=== PATIENT | male | born 2000 | race Caucasian/White ===

== ENCOUNTER 2018-04-10 10:00 | Outpatient (RCR) | payer SELFPAY ==
--- NOTE | 2018-03-27 10:03 | IE_ITS ---
Date: 03/27/18 Referring: Mili Canales APRN [facility] [address] [place] Erin Diagnosis: Pain of (R) scapula P.T. Diagnosis: Cervicogenic (R) scapula paraesthesia, nerve root entrapment C6 -7 (R). SUBJECTIVE: History of Present Illness: Farooq reporting that in mid February he woke up one morning feeling as if he had a rash on the (R) scapular area. Visual examination there was no presentation of a rash but he did state that he was very swollen along the (R) side of his thoracic spine and along the (R) shoulder blade. He has episodic symptoms of feeling cold, rash feeling, pins and needles or numbness. He has not noticed a particular movement or activity that exacerbates these symptoms. He is (R) hand dominant and he also explains intermittent chest pain that happens about 2x per day and feels like a tight muscle sensation. Denies shortness of breath or palpitations. Chest pain has been present since May 2018 after he pushed a 55 gallon drum and had a pec strain. At that point his pain was severe and daily. Since it has subsided so he believes that this is residual discomfort from this as symptoms are exactly the same, it never essentially resolved. He reports some occasional neck stiffness about 2-3 times per week but without any real pain. If he is lying on his back with arm abducted to his side he will have numbness in the arm but as soon as he changes his position numbness resolves. He observes no strength deficits or motor control of the UE and he denies double vision, dizziness, drop attacks, or difficulty swallowing. He denies any fevers or any other joint swelling or discomfort. He has not had any diagnostics at this point. Pain Rating: Pt does not describe his symptoms as pain as much as paraesthesias and he has a very hard time rating this on the VAS. Pain Location: (R) thoracic paraspinals, (R) parascapular region with some referral into the (L) thoracic paraspinals with exacerbation. Mild (R) upper trap discomfort with stiffness in the neck. Intermittent paraesthesias numbness (R) UE but less frequent. Prior Level of Function: WNL Current Level of Function: Essentially WNL but has above symptoms occurring with general object manipulation and activity. 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 He continues to carry out all of his work duties currently. Comorbidities: Denies. Falls in the last year: __X__ No ____Yes - How many? ____ - (if over 2, balance SM needs to be completed) Reported hospitalizations in the last year - __X__ No ____ Yes - Dates of admission/reason: Medications: Denies Quality of Life: __X__ Good Standardized Measures: None completed. OBJECTIVE: Posture: Has mild shoulder hiking (B), and just very mild shoulder protrusion ( B) and symmetrical but nothing remarkable. His mild suggestion of a (R) thoracic convexity but very mild and also not of mentioned. Mild forward head but more due to poor posture utilization verus fixed deformity. Observation: (behavior, atrophy, skin color, etc.) Normal and symmetrical muscle appearance intention through (B) cervical thoracic regions. Symmetrical and stable scap thoracic mobility with dynamic glenohumeral movements. Communicates well and he appears comfortable. Gait: WNL Palpation: Mild trigger point (R) upper trap, feeling of some numbness and paraesthesias with palpation through the (R) parascapular region particularly the (R) infraspinatus fossa. But no tension appreciated throughout this region. Edema: None ROM: (L) UE WNL C-spine flexion WNL Extension is WNL but positive paraesthesias provocation. (L) rotation 70* (R) rotation 60* (B) side bend is about 45* all without symptom provocation (R) UE is full inactively without pain provocation with the exception of end range abduction producing mild paraesthesias otherwise UE are WNL (B) Joint Accessory Motion: C-spine articular side gliding and PAs are all WNL but with mild symptom provocation of (R) paraesthesias with (L) lateral side glide of c6 and C7 and with faucet up gliding of C6 and C7 and with (R) UPAs of C5- C7. With upper thoracic PAs she has mild paraesthesia provocation likely related to the extension overpressure through the c-spine. But otherwise thoracic mobs are essentially WNL with come cavitations even occurring at T5- T9. Strength: Grossly 5/5 throughout (B) UE and throughout the rotator cuff and parascapular musculature with good scap stability and good intrinsic stability. Neuro: WNL, UE screen (B). Median and ulnar nerve tension is WNL and symmetrical. Balance: WNL Special Tests: Positive Spurlings, negative (R) cervical quadrant, pain relief with cervical traction, negative ULTT (B), negative Seth Gabriel Impingement Testing. Movement dysfunction has very slight forward head with forward bending movements and lifting objects off the floor. He is observed to have poor posture with forward head protrusion of shoulders throughout but without deformities. Treatment: IE: [id number] Patient Education: Review HEP which is to include (R) upper trap and levator scap stretching but just gentle more for decompression of the (R) side of the spine. Review Biswas release pose and release of deep neck flexors with dynamic movements. KX applied to all codes ____ Yes __X__ No Manual therapy: (00665e2). Manual cervical traction (R) cervical up gliding and faucet up gliding. Articular side gliding throughout with focus of gapping with C5 through C7 neuro foramen. Ulnar nerve and median nerve ULTT flossing at the (R) x 10 each, IASTM down regulation throughout the (R) thoracic paraspinals , upper trap, infraspinatus fossa and (B) cervical paraspinals. OA flexion oscillation demonstrating excellent mobility, prolonged mid cervical flexion stretching with end range over pressure to 10* (B). Rock Taping application for inhibition of the (R) upper trap, facilitation of the lower trap for proper posture and for inhibition of the (R) cervical and thoracic paraspinals for desensitization efforts and paraesthesias. Direct treatment time: 60 minutes Total treatment time: 60 minutes ASSESSMENT: Patient is a 17-year-old male, referred for PT services with the diagnosis of (R ) scapular pain. Patient presents with clinical signs and symptoms consistent with cervicogenic (R) scapular paraesthesias, likely related to nerve root impingement. Pt is testing negative for any signs of disc pathology at this time. He has a job that involves a lot of lifting and overhead movements, likely allowing for mechanical impingement of his (R) cervical nerve root while performing theses activities, as he demonstrates poor posture utilization today with dynamic movement. , as demonstrated by the following impairment level findings: Soft tissue dysfunction throughout the (R) upper trap. Thoracic paraspinals and (R) infraspinatus, limited (R) cervical rotation, poor body awareness of deep neck flexors and appropriate posture with dynamic movements and mild articular limitations of the (R) C5-C7 region. Impairments are contributing to the following functional limitations: Discomfort with all object manipulation and job duties compared to premorbid level of function of pain free functioning. Patient is assessed as: __X__ Low 13474 ____ Moderate 91254 ____ High 31123 complexity, based on the following: History: See comorbidities and social history. Examination: See above for functional limitations and impairments. Presentation: X Evolving Decision-Making: X Moderate complexity __X__ Patient requires skilled PT intervention to remediate the above functional limitations to return to: __X__ Premorbid level of function Prognosis: __X__ Excellent STG: __4__ weeks. 1. PT reporting (R) scapular paraesthesias to be decreased by 50% 2. Can lay supine with (R) arm at his side without (R) UE numbness LTG: __7__ weeks. __X__ Return to premorbid level of function. PLAN: Patient to be seen 2 x per week, for 7 weeks, adjusting frequency of visits per patient symptoms and response to treatment. Treatment to include: X Manual therapy - [id number]: For cervical spine manual traction efforts with focus of decompression and nerve root decompression of the (R) side. Thoracic mobilizations for desensitizations and decompression efforts to the (R ) c-spine. Rock Taping application for desensitization in addition to down regulation IASTM as well as upregulation IASTM to lower traps and scapular stabilizers. X NRE- For deep neck flexor body awareness exercises and intrinsic utilization with dynamic movements. Thank you for this referral. Please do not hesitate to contact me with any questions or concerns regarding this patient's plan of care.
--- NOTE | 2018-04-01 11:18 | PTTR_ITS ---
DATE: 04/01/18 SUBJECTIVE: [place] rock tape assisted his shoulder to remain in proper position, and thus seemed to have less tingling. He did not appreciate any tingling in shoulder blade region until he was folding some laundry at home. His coworker are sitting with his lifting needs, to reduce strain to his neck. OBJECTIVE: KX applied to all codes N/A Manual therapy: ([id number]). IASTM down regulation R thoracic paraspinals, cervical paraspinals, and upper trap. Deep TPR to R upper trap and strumming of thoracic paraspinals R medial, radial, and ulnar nerve flossing x 10 each Manual cervical traction, and unilateral traction. Bilateral cervical massage facet upgliding, and R articular sidegliding for nerve root decompression. Therapeutic procedures ([id number]). Supine deep neck flexor isometrics, with remarkable verbal and manual cues for proper activation. Instructed to hold 10 sec, working up to 30 sec every half hour. Transitioned to prone and completed deep neck flexor activation with lower trap isometric 10 sec x 10. Both of these exercises added to HEP. Direct treatment time: 30 minutes Total treatment time: 30 minutes
--- NOTE | 2018-04-04 13:56 | PTTR_ITS ---
DATE: 04/04/18 SUBJECTIVE: Pt states he is feeling excellent at this point. He has noted a few times where he has had some paresthesias in the R shoulder blade, but this was when he was hunched over playing video games. As soon as he changed his posture, symptoms immediately reduced. Only has pain along the R shoulder blade region now when touching his skin. OBJECTIVE: Pt arrives 15 min late to his appt today, limiting treatment. Manual therapy: ([id number]). ROM: Full C-spine. Bilateral UE ROM without pain. Neuro: Negative R radial ulnar or median nerve flossing. Complete manual cervical traction, unilateral traction, R sided facet gapping via articular side gliding to the R. R upper trap and levator scap stretching. Prolonged midcervical spine stretching with decompression of the R side.R median and ulnar nerve flossing. IASTM down regulation through bilateral thoracic paraspinals and R upper trap, scapular framing and periscapular mobilization with instrument. Pt education: Encouraged to continue with current HEP and postural correction with functional movements. Direct treatment time: 20 min Total treatment time: 20 min ANUP/nicholas
--- NOTE | 2018-04-10 10:00 | PTTR_ITS ---
DATE: 04/10/18 SUBJECTIVE: Farooq stating that he continues to have minimal paresthesias through the R shoulder blade with exception of one area of numbness at the top of the shoulder blade and muscle tension along the R upper trap. He has only had 1 episode of tingling through the shoulder blade when he was lifting a heavy tire, otherwise has been able to maintain his symptoms well utilizing good posture. He appreciates now more general muscle tension through the upper trap vs the paresthesias. Manual therapy: ([id number]). Manual cervical traction, unilateral traction with focus of R side facet gapping on the R side with L rotation. Prolonged R upper trap, levator scap stretching, STM with IASTM down regulation through the R upper trap and R thoracic paraspinals. Instrument utilized for scap, thoracic mobilization. Deep trigger point release to the R upper trap. Rock taping applied to inhibit the R upper trap and R UE radial and medial nerve flossing x15 reps each. Patient encouraged to continue with deep neck flexor stabilization exercise and postural correction as I have previously issued. Direct treatment time: 25 mins Total treatment time: 25 mins JH/dl
--- NOTE | 2018-04-11 12:31 | NT_ITS ---
04/11/18 Patient canc due to transportation issues. LB/dl
== END 2018-04-19 23:59 | disposition home or self-care (01) ==
LOC: PT 10:00
PROVIDERS: PCP Family Medicine; Referring Provider Nurse Practitioner; Visit Provider Nurse Practitioner
DX: G54.2 Cervical root disorders, not elsewhere classified (principal)
CPT/HCPCS: 97110; 97140; 97161

== ENCOUNTER 2023-05-01 13:34 | Emergency (ER) | payer SELFPAY ==
[2023-05-01 13:42] VITALS: BP 139/93; PULSE 99; TEMP 37.2; O2SAT 97
--- OUTSIDE RECORDS SUMMARY | 2023-05-01 13:53 | XMS_ITS | Continuity of Care Document ---
Author Name Unknown Organization [facility] Address [address] [place] [address] Encounter LTTL_MI FIN NBR [id number] Date(s): 02/28/23 - 02/28/23 [facility] [address], [place] [address] Encounter Diagnosis Cervical radiculopathy(Discharge Diagnosis) - 02/28/23 Discharge Disposition: Home or Self Care Attending Physician: Lul Hurt MD Admitting Physician: Lul Hurt MD Allergies, Adverse Reactions, Alerts No Known Medication Allergies Functional Status 02/28/23 Other exposure to Infectious Disease Non e Medications No Known Medications Mental Status 02/28/23 Eye Opening Response [place] Spontaneous ly Best Verbal Response Wai Oriented Best Motor Response Wai Obeys comman ds [place] Coma Score 15 Vital Signs Most recent to oldest [Reference Range]: 1 Temperature Temporal Artery [36-38 Deg C ] 36.3 Deg C (02/28/23 9:21 AM) Peripheral Pulse Rate [60-100 bpm] 75 bp m (02/28/23 9:21 AM) Respiratory Rate [12-24 br/min] 17 br/mi n (02/28/23 9:21 AM) Blood Pressure [90-140/60-90 mmHg] 145/9 6mmHg *HI* (02/28/23 9:21 AM) Weight 79.38 kg (02/28/23 9:21 AM) Weight Dosing 79.38 kg (02/28/23 9:32 AM) Height 183.000 cm (02/28/23 9:21 AM) Height/Length Dosing 183.000 cm (02/28/23 9:32 AM) Body Mass Index 24.000 kg/m2 (02/28/23 9:21 AM) Social History Social History Type Response Tobacco Never tobacco user T obacco Use:. Sex Hospital Discharge Instructions Patient Education 02/28/2023 09:16:18 Cervical Radiculopathy Cervical Radiculopathy Cervical radiculopathy happens when a nerve in the neck (a cervical nerve) is pinched or bruised. This condition can happen because of an injury to the cervical spine (vertebrae) in the neck, or as part of the normal aging process. Pressure on the cervical nerves can cause pain or numbness that travels from the neck all the way down to the arm and fingers. This condition usually gets better with rest. Treatment may be needed if the condition does not improve. What are the causes? This condition may be caused by: ??? A neck injury. ??? A bulging (herniated) disk. ??? Muscle spasms. ??? Muscle tightness in the neck due to overuse. ??? Arthritis. ??? Breakdown or degeneration in the bones and joints of the spine (spondylosis) due to aging. ??? Bone spurs that may develop near the cervical nerves. What are the signs or symptoms? Symptoms of this condition include: ??? Pain. The pain may travel from the neck to the arm and hand. The pain can be severe or irritating. It may get worse when you move your neck. ??? Numbness or tingling in your arm or hand. ??? Weakness in the affected arm and hand, in severe cases. How is this diagnosed? This condition may be diagnosed based on your symptoms, your medical history, and a physical exam. You may also have tests, including: ??? X-rays. ??? CT scan. ??? MRI. ??? Electromyogram (EMG). ??? Nerve conduction tests. How is this treated? In many cases, treatment is not needed for this condition. With rest, the condition usually gets better over time. If treatment is needed, options may include: ??? Wearing a soft neck collar (cervical collar) for short periods of time. ??? Doing physical therapy to strengthen your neck muscles. ??? Taking medicines. These may include NSAIDs, such as ibuprofen, or oral corticosteroids. ??? Having spinal injections, in severe cases. ??? Having surgery. This may be needed if other treatments do not help. Different types of surgery may be done depending on the cause of this condition. Follow these instructions at home: If you have a cervical collar: ??? Wear it as told by your health care provider. Remove it only as told by your health care provider. ??? Ask your health care provider if you can remove the cervical collar for cleaning and bathing. If you are allowed to remove the collar for cleaning or bathing: ??? Follow instructions from your health care provider about how to remove the collar safely. ??? Clean the collar by wiping it with mild soap and water and drying it completely. ??? Take out any removable pads in the collar every 1???2 days, and wash them by hand with soap andwater. Let them air-dry completely before you put them back in the collar. ??? Check your skin under the collar for irritation or sores. If you see any, tell your health careprovider. Managing pain ??? Take ydsq-zqm-dqtrpuh and prescription medicines only as told by your health care provider. ??? If directed, put ice on the affected area. To do this: ??? If you have a soft neck collar, remove it as told by your health care provider. ??? Put ice in a plastic bag. ??? Place a towel between your skin and the bag. ??? Leave the ice on for 20 minutes, 2???3 times a day. ??? Remove the ice if your skin turns bright red. This is very important. If you cannot feel pain, heat, or cold, you have a greater risk of damage to the area. ??? If applying ice does not help, you can try using heat. Use the heat source that your health care provider recommends, such as a moist heat pack or a heating pad. ??? Place a towel between your skin and the heat source. ??? Leave the heat on for 20???30 minutes. ??? Remove the heat if your skin turns bright red. This is especially important if you are unable to feel pain, heat, or cold. You have a greater risk of getting burned. ??? Try a gentle neck and shoulder massage to help relieve symptoms. Activity ??? Rest as needed. ??? Return to your normal activities as told by your health care provider. Ask your health care provider what activities are safe for you. ??? Do stretching and strengthening exercises as told by your health care provider or your physicaltherapist. ??? You may have to avoid lifting. Ask your health care provider how much you can safely lift. General instructions ??? Use a flat pillow when you sleep. ??? Do not drive while wearing a cervical collar. If you do not have a cervical collar, ask your health care provider if it is safe to drive while your neck heals. ??? Ask your health care provider if the medicine prescribed to you requires you to avoid driving or using machinery. ??? Do not use any products that contain nicotine or tobacco. These products include cigarettes, chewing tobacco, and vaping devices, such as e-cigarettes. If you need help quitting, ask your health care provider. ??? Keep all follow-up visits. This is important. Contact a health care provider if: ??? Your condition does not improve with treatment. Get help right away if: ??? Your pain gets much worse and is not controlled with medicines. ??? You have weakness or numbness in your hand, arm, face, or leg. ??? You have a high fever. ??? You have a stiff, rigid neck. ??? You lose control of your bowels or your bladder (have incontinence). ??? You have trouble with walking, balance, or speaking. Summary ??? Cervical radiculopathy happens when a nerve in the neck is pinched or bruised. ??? A nerve can get pinched from a bulging disk, arthritis, muscle spasms, or an injury to the neck. ??? Symptoms include pain, tingling, or numbness radiating from the neck to the arm or hand. Weakness can also occur in severe cases. ??? Treatment may include rest, wearing a cervical collar, and physical therapy. Medicines may be prescribed to help with pain. In severe cases, injections or surgery may be needed. This information is not intended to replace advice given to you by your health care provider. Make sure you discuss any questions you have with your health care provider. Document Revised: 02/09/2022 Document Reviewed: 02/09/2022 [employer] Patient Education ?? 2022 [employer] Physician Emergency department Note * Licha HARMON, Lul Jamison: PERFORM Event Display: ED Note Physician Authored Date: [id number] MARLEEN PRATT :2000 Age:22 years Sex:Male Visit Date:02/28/2023 Basic Information Time Seen: Licha HARMON, Lul M / 02/28/2023 09:39 Chief Complaint Pt noticed LEFT shoulder numbness down to elbow and 4th and 5th digits last night. Lasted a few seconds and went away. Started again this AM after moving his arm at work. I think I might have pinched a nerve. 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 Denies any chest pain, shortness of breath fevers cough trouble breathing.?? No rashes, no tick bites no fevers. ??No IVDA, has hadsome mild??trapezial discomfort as well.?? Has a history of??sciatica in the right leg,??strain back??with upper right scapula??paresthesias and altered sensation in the past treated with PT??(no prior imaging).?? No cardiac risk factors,??occasional marijuana use. Review of Systems: Review of Systems: Constitutional: [No fevers, chills, sweats] Eye: [No acute visual complaints] ENT: [No ear pain, nasal congestion, sore throat] Respiratory: [No shortness of breath, cough] Cardiovascular: [No Chest pain or palpitations] Upper left chest??tingling Gastrointestinal: [No nausea, vomiting, or diarrhea. No blooding or melena] Genitourinary: [No dysuria or hematuria] Musculoskeletal: [Old left trapezial neck discomfort,??tingling??down outside of??left arm??down tohand Integumentary: [No rash, pruritus, abrasions] Neurologic: [Left armradiculopathy, otherwise??no focal sensory or motor complaints. Denies syncope] Psychiatric: [No anxiety, depression] ?? Physical Exam: General: [Alert and oriented, well nourished, no acute distress].?? Eye: [PERRL, EOMI, normal conjunctiva]. HENT: [Normocephalic, normal hearing, moist oral mucosa, no scleral icterus, no nasal discharge].?? Neck: [Ranging neck, normal inspection].?? Lungs: [Clear to auscultation, non-labored respiration, no tachypnea].?? Heart: [Normal rate, regular rhythm, no murmur, gallop or edema]. Abdomen: [Soft, non-tender, non-distended, normal bowel sounds].?? Musculoskeletal: [Normal range of motion and strength, no tenderness or swelling]. Skin: [Skin is warm, dry and pink, no rashes or lesions]. Neurologic: [Awake, alert and oriented X4, normal tone, moving all extremities with good strength].[Ambulation intact].5/5 all cervical roots, intact reflexes, normal gait, no drift,??hops on singlefeet,??full strength throughout.?? No paresthesias altered sensation while in ED Psychiatric: [Cooperative, appropriate mood and affect]. Physical Exam Vitals & Measurements T:??36.3?C ??(Temporal Artery)?? HR:??75??(Peripheral)?? RR:??17?? BP:??145/96?? SpO2:??96%?? HT:??183.000??cm?? WT:??79.38??kg?? BMI:??24.000?? O2 Therapy:??Room air?? Procedure No Qualifying Data Assessment/Plan 1.??Cervical radiculopathy??M54.12 Orders: Discharge Patient, 02/28/23 10:07:00 EDT Well-appearing young man with??history??and exam??consistent with cervical radiculopathy,??clear lungs normal heart sounds,??EKG sinus rhythm with??J- point??elevation rate 65.?History??presentation, EKG etc. not consistent with??cardiac or other process. ??Will discharge with??avoidance of heavy lifting, Tylenol/Motrin/lidocaine patches; I reviewed with patient indications for MRI??and furtherwork-up. Patient Education Cervical Radiculopathy Problem List/Past Medical History Ongoing No qualifying data Historical No qualifying data Allergies No Known Medication Allergies Social History Alcohol Current, 1-2 times per month Electronic Cigarette/Vaping Electronic Cigarette Use: Never. Substance Use Current, Marijuana, 1-2 times per month Tobacco Never tobacco user Tobacco Use:. Electronically Signed on 02/28/23 10:35 AM Lul Hurt MD Emergency department Discharge instructions * Lul Hurt MD: PERFORM Event Display: ED Discharge Information Authored Date: [id number] MARLEEN PRATT :2000 Age:22 years Sex:Male Visit Date:02/28/2023 Discharge Instructions We would like to thank you for allowing us to assist you with your healthcare needs. The following includes patient education materials and information regarding your injury/illness. Diagnosis from Today's Visit Cervical radiculopathy Discharge Vitals Temperature??(Temporal Artery) 97.3 ??F (36.3 ??C) Heart Rate??(Peripheral) 75 Respiratory Rate?? 17 Blood Pressure?? 145/96?? Height?? 72.05 in (183.000 cm) Weight?? 175.03 lb (79.38 kg) BMI?? 24.000 Allergies No Known Medication Allergies What to Do Next Instructions from Your Care Team Avoid heavy lifting;??take Tylenol/Motrin for discomfort as necessary. ??You can also try an anesthetic patch??(lidocaine??4%, hcve-[id number])??over your neck to see if it helps with the discomfort. ??If you get weakness in your hand, neck pain with fevers, bowel or bladder problems or other neurologic??issues you need further evaluation and may need an MRI of your neck. You were treated today on an emergency basis; it may be fishman to contact your primary care provider to notify them of your visit today. You may have been referred to your regular doctor or a specialist, please follow up as instructed. If your condition worsens or you can't get in to see the doctor, contact the Emergency Department. Education Materials Cervical Radiculopathy Cervical radiculopathy happens when a nerve in the neck (a cervical nerve) is pinched or bruised. This condition can happen because of an injury to the cervical spine (vertebrae) in the neck, or as part of the normal aging process. Pressure on the cervical nerves can cause pain or numbness that travels from the neck all the way down to the arm and fingers. This condition usually gets better with rest. Treatment may be needed if the condition does not improve. What are the causes? This condition may be caused by: ? A neck injury. ? A bulging (herniated) disk. ? Muscle spasms. ? Muscle tightness in the neck due to overuse. ? Arthritis. ? Breakdown or degeneration in the bones and joints of the spine (spondylosis) due to aging. ? Bone spurs that may develop near the cervical nerves. What are the signs or symptoms? Symptoms of this condition include: ? Pain. The pain may travel from the neck to the arm and hand. The pain can be severe or irritating. It may get worse when you move your neck. ? Numbness or tingling in your arm or hand. ? Weakness in the affected arm and hand, in severe cases. How is this diagnosed? This condition may be diagnosed based on your symptoms, your medical history, and a physical exam. You may also have tests, including: ? X-rays. ? CT scan. ? MRI. ? Electromyogram (EMG). ? Nerve conduction tests. How is this treated? In many cases, treatment is not needed for this condition. With rest, the condition usually gets better over time. If treatment is needed, options may include: ? Wearing a soft neck collar (cervical collar) for short periods of time. ? Doing physical therapy to strengthen your neck muscles. ? Taking medicines. These may include NSAIDs, such as ibuprofen, or oral corticosteroids. ? Having spinal injections, in severe cases. ? Having surgery. This may be needed if other treatments do not help. Different types of surgery may be done depending on the cause of this condition. Follow these instructions at home: If you have a cervical collar: ? Wear it as told by your health care provider. Remove it only as told by your health care provider. ? Ask your health care provider if you can remove the cervical collar for cleaning and bathing. If you are allowed to remove the collar for cleaning or bathing: ? Follow instructions from your health care provider about how to remove the collar safely. ? Clean the collar by wiping it with mild soap and water and drying it completely. ? Take out any removable pads in the collar every 1???2 days, and wash them by hand with soap and water. Let them air-dry completely before you put them back in the collar. ? Check your skin under the collar for irritation or sores. If you see any, tell your health care provider. Managing pain ? Take ppiu-wat-odzthtd and prescription medicines only as told by your health care provider. ? If directed, put ice on the affected area. To do this: ? If you have a soft neck collar, remove it as told by your health care provider. ? Put ice in a plastic bag. ? Place a towel between your skin and the bag. ? Leave the ice on for 20 minutes, 2???3 times a day. ? Remove the ice if your skin turns bright red. This is very important. If you cannot feel pain, heat, or cold, you have a greater risk of damage to the area. ? If applying ice does not help, you can try using heat. Use the heat source that your health care provider recommends, such as a moist heat pack or a heating pad. ? Place a towel between your skin and the heat source. ? Leave the heat on for 20???30 minutes. ? Remove the heat if your skin turns bright red. This is especially important if you are unable to feel pain, heat, or cold. You have a greater risk of getting burned. ? Try a gentle neck and shoulder massage to help relieve symptoms. Activity ? Rest as needed. ? Return to your normal activities as told by your health care provider. Ask your health care provider what activities are safe for you. ? Do stretching and strengthening exercises as told by your health care provider or your physical therapist. ? You may have to avoid lifting. Ask your health care provider how much you can safely lift. General instructions ? Use a flat pillow when you sleep. ? Do not drive while wearing a cervical collar. If you do not have a cervical collar, ask your healthcare provider if it is safe to drive while your neck heals. ? Ask your health care provider if the medicine prescribed to you requires you to avoid driving or using machinery. ? Do not use any products that contain nicotine or tobacco. These products include cigarettes, chewing tobacco, and vaping devices, such as e-cigarettes. If you need help quitting, ask your health careprovider. ? Keep all follow-up visits. This is important. Contact a health care provider if: ? Your condition does not improve with treatment. Get help right away if: ? Your pain gets much worse and is not controlled with medicines. ? You have weakness or numbness in your hand, arm, face, or leg. ? You have a high fever. ? You have a stiff, rigid neck. ? You lose control of your bowels or your bladder (have incontinence). ? You have trouble with walking, balance, or speaking. Summary ? Cervical radiculopathy happens when a nerve in the neck is pinched or bruised. ? A nerve can get pinched from a bulging disk, arthritis, muscle spasms, or an injury to the neck. ? Symptoms include pain, tingling, or numbness radiating from the neck to the arm or hand. Weakness can also occur in severe cases. ? Treatment may include rest, wearing a cervical collar, and physical therapy. Medicines may be prescribed to help with pain. In severe cases, injections or surgery may be needed. This information is not intended to replace advice given to you by your health care provider. Make sure you discuss any questions you have with your health care provider. Document Revised: 02/09/2022 Document Reviewed: 02/09/2022 [employer] Patient Education ?? 2022 [employer] Patient/Ore Tester Signature Patient Name:MARLEEN PRATT I have received this information and my questions have been answered. Patient/Ore Tester Name: Patient/Ore Tester Signature: Relationship to Patient: Witness Name/Signature: Date: Electronically Signed on: 02/28/2023 10:17 EDTSigned by:CRISTIAN Patient Care team information Care Team Personnel Name: Lul Hurt MD Position: Physician Member Role: ED Physician Address: Address: [facility] [address] [address]- [place] Name: Sonny Amador Position: Nurse Member Role: Registered Nurse
--- NOTE | 2023-05-01 14:30 | DI.RAD_ITS ---
Exam(s) XR HAND RT COMPLETE EXAM: XR HAND RT COMPLETE CLINICAL HISTORY: right hand pain. TECHNIQUE: 2D digital imaging was performed. Three views. COMPARISON: No exams were available for comparison FINDINGS: BONES: Acute fracture distal 5th metatarsal with ventral angulation and ventral displacement. No add itional fractures. No bony destructive lesion is seen. JOINTS: No dislocation present. SOFT TISSUE: Normal. IMPRESSION: Distal 5th metacarpal fracture. DATA REPOSITORY: RADIATION DOSE DELIVERED:
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
--- NOTE | 2023-05-01 16:18 | NUR.NOTE ---
Referred Pt to Care Management to Obtain a Primary Care Provider. This will be to establish care with a routine follow up. Pt referred to Orthopedics due to a diagnosis of Boxer Fracture and was discharged with a splint. Nursing Note:
--- NOTE | 2023-05-01 16:30 | PDOC.MHCN ---
Date of service: 05/01/23 Time of Service: 15:15 PHQ-9 Over the last 2 weeks, how often have you been bothered by any of the following problems? 1. Little interest or pleasure in doing things: more than half the days 2. Feeling down, depressed, or hopeless: nearly every day 3. Trouble falling or staying asleep, or sleeping too much: nearly every day 4. Feeling tired or having little energy: several days 5. Poor appetite or overeating: nearly every day 6. Feeling bad about yourself - or that you are a failure or have let yourself and your family down: nearly every day 7. Trouble concentrating on things, such as reading the newspaper or watching television: nearly every day 8. Moving or speaking so slowly that other people could have noticed? - Or the opposite - being so fidgety or restless that you have been moving around a lot more than usual: nearly every day 9. Thoughts that you would be better off or of hurting yourself in some way: several days Total score: 22 If you checked off any problems, how difficult have these problems made it for you to do your work, take care of things at home, or get along with other people?: somewhat difficult PHQ-9 Results: Positive Source: Developed by Drs. Ilir Stroud, Jackie Naranjo, Higinio Puckett and colleagues, with an educational burak from [email or web address]. Suicide Severity Rate CSSRS Have you wished you were or wished you could go to sleep and not wake up?: Yes Have you actually had any thoughts of killing yourself?: No CSSRS3 Have you ever done anything, started to do anything or prepared to do anything to end your life?: No CSSRS4 Was this within the past three months?: No Screening Score Total Score: 2 Screening: Positive Mental Health Emergency Note Release [facility] release signed:: Yes Reason for Visit Client is not known to [facility] prior to this assessment today. The client presented to [facility] ED with his mother due to fleeting suicidal ideations and in increase in depression and anxiety. Per [facility] ED provider Cristela Resendez the client broke up with his girlfriend about 2 weeks ago and has been struggling since the break-up. This contract writer meets with the client in person at [facility] ED. In the last 2 weeks has the pt presented for ES prior to today?: No Client Information Client is: New Well Housed: Yes Non Suicidal Self Injury Current: No History: No Safety Risk/Harm to Self or Others Current Ideation to Harm Self or Others: Yes to self. (Client reports fleeting suicidal ideations with intent 09/29. The client denies plan. ) Intent: yes, has intent. Plan: no.does not have a plan. History of suicide attempt: No history of suicide attempt reported Risk: Does risk to harm exist?: yes. Access to means: No. Risk: Low Risk Duty to warn indicated: No Asssessment/Mental Status Appearance: Disheveled Attitude: Cooperative Behavior: Unremarkable Speech: Soft Affect: Flat and Cogruent with mood Mood: Sad, Stressed, Depressed and Anxious Thought process: Flight of ideas Hallucinations: No Delusions: No Attention: Poor concentration Perception: Not impaired Orientation: Fully orientated Memory: Intact Insight: Good Judgement: Good Neurovegetative Symptoms Sleep: Decrease (Client reports very poor sleep stating he is averaging about 2 hours a night. ) Appetitie: Decrease (Client reports poor appetite. ) Interests: Decrease Energy: Decrease Libido: Not applicable Substance Use: Do you use nicotine?: No Have you used substances in the last 7 days?: yes, The client reports that he uses marijuana daily. Additional Issues: Assaultive/Threatening Behavior: No Medical Concerns: No Client engaged in active self harm w/weapon: No Threatening to run away: No Child reported abuse/neglect: No Voluntarily presenting for services: Yes Domestic violence is a concern: No Extreme Psychosis or extreme behavior is present: No Impression The client is a 22 y/o single male that is currently staying with his mother and siblings in [place], [place]. 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 It appears that onset of symptoms occurred about 2 weeks ago when there was a break-up with his girlfriend and the mother of his 1 year old daughter. The client reports that all he wants is his life back that he had. The client presents with symptoms most congruent with major depressive disorder as evidenced by self-report, tearfulness, loss of appetite and sleep, and fleeting suicidal ideations. The client reports fleeting suicidal ideations, however he reports that he does not want to act of the thoughts he just does not want to feel like this anymore. The client does not currently have a PCP, however this contract writer provided contact information for community connections. The client would benefit from outpatient therapy and psychiatry and is open to a referral. Resources Reosurces reviewed and given:: [id number] and [facility] Plan/Disposition Recommended Disposition: [facility] Services [facility] Services: Therapy and Psychiatric Evaluation. Plan: This contract writer discuses options with the client such as inpatient hospitalization, crisis bed, and safety plan. The client does not wish to seek inpatient hospitalization at this time as he wants to try a safety plan. The client will be discharged from the hospital with check-in phone calls between 7 and 7:30a until 05/06. The client is also provided with [facility] 24 hour phone number. This contract writer will also complete referral for case management and therapy. Person reported agreement to plan: Yes Reports/communication Outcome discussed with: ED/Personnel (Verbal passover given to [facility] Ed provider Cristela Syedchmarika)
== END 2023-05-01 16:30 | disposition home or self-care (01) ==
PROVIDERS: Emergency Provider Physician Assistant; PCP Family Medicine
DX: R45.851 Suicidal ideations (principal); F32.A Depression, unspecified; F41.9 Anxiety disorder, unspecified; S62.396A Other fracture of fifth metacarpal bone, right hand, initial encounter for closed fracture; F17.290 Nicotine dependence, other tobacco product, uncomplicated; W22.8XXA Striking against or struck by other objects, initial encounter
CPT/HCPCS: 29125; 99283; 73130

== ENCOUNTER 2023-05-03 12:27 | Day surgery (SDC) | payer SELFPAY ==
[2023-05-03] VITALS (8 sets, daily range): BP systolic 102–142; BP diastolic 45–75; PULSE 48–76; RESP 10–20; TEMP 36.4–36.7; O2SAT 96–100; BMI 18.8
--- NOTE | 2023-05-03 10:00 | DI.RAD_ITS ---
Exam(s) XR HAND RT LIMITED EXAM: XR HAND RT LIMITED CLINICAL HISTORY: Fracture of fifth metacarpal bone of right hand. TECHNIQUE: 2D and realtime digital imaging was performed. COMPARISON: CR XR HAND RT COMPLETE from 05/01/2023 FINDINGS: Please see procedure note for details. Fluoro time: 8.6seconds RADIATION DOSE DELIVERED: rama Todd=0.18 mGy
--- NOTE | 2023-05-03 12:23 | W.PM.DSUDISC ---
Date of service: 05/03/23 Time of Service: 15:00 Discharge Plan Disposition Patient Disposition: Home Condition: Stable Discharge Details Reason For Visit: (R) 5TH METACARPAL FX Attending Provider: Gil Zuniga Primary Care Provider: None,None Home Meds and New Rx's Prescriptions: Continued hydroxyzine HCl 25 mg tablet 25 mg PO TID PRNQty: 20 0RF Discontinued ibuprofen 200 MG capsule 200 mg PO PRN PRN Discharge Instructions Additional Instructions: Surgery: Right hand fifth metacarpal closed reduction and splinting Activity: Nonweightbearing right hand. Recommend elevation to minimize swelling discomfort. Encourage range of motion to thumb index and middle fingers to prevent stiffness. Prescriptions: None You may use [id number] Tylenol/acetaminophen, Motrin/ibuprofen, and/or Aleve/naproxen as needed for pain Dressings: Leave splint and dressing in place until follow-up. Keep clean and dry at all times. Follow-up: 10-[address] Zuniga You may take off the leg compression stockings this evening at home. You may also leave them on a few days longer if you have a history of leg swelling or edema. Let us know right away if you develop any redness, drainage, fevers, chest pain, or trouble breathing. Do not drink alcohol or drive for at least 24 hours after anesthesia. Please call the office during business hours with any questions or concerns. DS: Diagnosis Discharge Diagnosis (1) Fracture of fifth metacarpal bone of right hand: Status: Acute
--- NOTE | 2023-05-03 12:26 | W.PM.OP ---
Date of service: 05/03/23 Time of Service: 13:30 Operative Note Operative Note DATE OF PROCEDURE: 05/03/23 PRE-OP DIAGNOSIS: Right hand displaced distal fifth metacarpal fracture POST-OP DIAGNOSIS: same PROCEDURE: Right hand fifth metacarpal closed reduction with manipulation under anesthesia and splinting, CPT #40615 SURGEON: Gil Zuniga PLASTIC SHEETS SUPERVISOR: Edgar Gonzalez ANESTHESIA TYPE: Local By Surgeon and MAC Refer to Anesthesia Record ESTIMATED BLOOD LOSS: 0 COMPLICATIONS: None Patient was transported to: PACU Patient's condition: stable Indications: Please see complete medical record for details. Procedure Description: In the operating room, monitored anesthesia care was induced. The patient was positioned supine on the operating room table. All bony prominences were well-padded. Preoperative antibiotics were held pending closed reduction attempt. The correct patient, procedure, and side of the procedure were all verified prior to beginning. The right hand fifth metacarpal distal fracture site was preinjected with 0.25% bupivacaine containing epinephrine 10 cc in the fracture and around the subcutaneous areas on all sides. Fracture was then manipulated using the Jahss maneuver and readily reducible into excellent alignment. Acceptable alignment was maintained with proper positioning on the wrist in extension and MCP joints in flexion. Decision was made to omit any pinning and proceed with splinting. A plaster ulnar gutter splint was made and applied to the extremity, which was positioned appropriately, and reduction confirmed to be maintained with mold dorsal and proximal to the fracture site through the splint in the ulnar digits in flexion. Final C arm fluoroscopic images confirmed appropriate reduction and hardened splint. The patient tolerated the procedure without complication and was transferred to the recovery room in a stable condition.
--- NOTE | 2023-05-03 13:36 | ANES.PREOP_ITS ---
General Info Date of Service Date Performed: 05/03/23 Height: 6 ft 1 in Weight: 64.6 kg Body Mass Index (BMI): 18.8 Surgical Procedure: Operation Date: 05/03/23 14:55 Proposed Procedure Side Surgeon p Hand/Finger Percutaneous Pinning 5th Metacarpal Right Gil Zuniga MD s Closed Reduction 5th Metacarpal Gil Zuniga MD Actual Procedure Side Surgeon p Hand/Finger Percutaneous Pinning 5th Metacarpal Right Gil Zuniga MD s Closed Reduction 5th Metacarpal Right Gil Zuniga MD Pre-Op Diagnosis Post-Op Diagnosis Fracture of fifth metacarpal bone of right hand Meds Allergies and Home Medications Allergies Allergy/AdvReac Type Severity Reaction Status Date / Time No Known Allergies Allergy Unverified 05/03/23 12:46 Home Medication Medication Instructions Recorded hydroxyzine HCl 25 mg tablet 25 mg PO TID PRN #20 tabs 05/01/23 Current Visit Medications: Current Medications Generic Name Dose Route Start Last Admin Trade Name Freq PRN Reason Stop Dose Admin Ringer's Solution 1,000 mls @ 30 mls/hr 05/03/23 06:00 IV 05/03/23 23:59 INFUSION ELIANA Cefazolin Sodium/Dextrose 2 gm in 50 mls @ 100 mls/hr 05/03/23 06:00 Ancef Duplex IVPB 05/03/23 23:59 PREOP ELIANA IV Miscellaneous Supplies 1 each 05/03/23 06:00 Iv Access IV 05/03/23 23:59 DIRECTED ELIANA Sodium Chloride 0 ml 05/03/23 06:00 Normal Saline Flush 10 Ml Syr IV 05/03/23 23:59 PRN PRN Sodium Chloride 0 ml 05/03/23 06:00 Normal Saline 10 Ml Vial IJ 05/03/23 23:59 DIRECTED PRN Sterile Water 0 ml 05/03/23 06:00 Water,Injection,Sterile 10 Ml Vial IJ 05/03/23 23:59 DIRECTED PRN PFSH Active Problems Active Problems: Problem Status Onset Code Depression F32.A Anxiety F41.9 Fracture of fifth metacarpal bone of right hand 04/29/23 S62.306A Medical History Medical History (Updated 05/03/23 @ 13:56 by Maddy Schuler) Erythrocytosis family hx Medical History Comments:: Tobacco use, chew yesterday midday; Marijauna daily 11am. Surgical History Surgical History (Updated 05/03/23 @ 12:50 by Maddy Schuler) History of bone marrow biopsy Age 16; related to high iron, and symptoms; [facility] History of wisdom tooth extraction Hx of appendectomy pt reports Age 15-16, Surgery at [facility] Hx of colonoscopy Hx of esophagogastroduodenoscopy Tobacco Smoking/Tobacco Use Status: Current every day Tobacco Type: smokeless tobacco Alcohol Alcohol Intake: current Alcohol intake frequency: a few times a month Alcohol type: beer Substance Use Substance use: Daily Substance use type: marijuana Vital Signs and Lab Results Vital Signs Most Recent Vital Signs in EMR: Most Recent Vital Signs Temp Pulse Resp BP Pulse Ox 36.7 C 76 16 139/75 97 05/03/23 12:40 05/03/23 12:40 05/03/23 12:40 05/03/23 12:40 05/03/23 12:40 Lab Results Blood Type / Crossmatch: No Data to Display Complete Blood Count: No Data to Display Complete Metabolic Panel: No Data to Display Liver Function Panel: No Data to Display Coagulation Panel: No Data to Display Cardiac Panel: No Data to Display Arterial Blood Gas: No Data to Display Venous Blood Gas: No Data to Display Pancreas Panel: No Data to Display Thyroid Panel: No Data to Display Infectious Disease: No Data to Display Blood Cultures: No Data to Display Toxicology Panel: No Data to Display Anesthesia Assessment and Plan Anesthesia History Personal History: No History of Anesthesia Complications Family History: No Family History of Anesthesia Complications Exercise Tolerance Exercise Tolerance: Metabolic Equivalents>4 Pertinent Negatives Pertinent Negatives: No Symptoms of GERD, No Major Cardiovascular Symptoms or Complaints and No Major Pulmonary Symptoms or Complaints Cardiac & Pulmonary Exam Cardiac Exam: Normal S1/S2 Heart Sounds Pulmonary Exam: Clear Bilateral Breath Sounds Implantable Cardiac Device Does patient have a Pacemaker or an ICD?: No Airway Exam Known Difficult Airway: No Mallampati Class: 1 Mouth Opening: Normal (> 3cm) Thyromental Distance: Greater than 3 cm Neck Range of Motion: Full ROM Neck Circumference: Normal Teeth Condition: Normal Dentition ASA Classification ASA Score: ASA 2 Emergency Case?: No NPO Status NPO Status: NPO Clears >2 hours, Solids >8 hours Anesthesia Plan Resuscitation Status: Full Code Anesthesia Technique: General Anesthesia Airway Planned: Natural Airway Monitors Used: Standard Monitors Preoperative Comments:: Natural airway with GA/LMA backup
[2023-05-03] MEDS: Lactated Ringers 1,000 ML 30 ML IV (13:45)
[2023-05-03] MEDS: EPINEPHrine 30 MG/30 ML VIAL (14:15)
[2023-05-03] MEDS: Bupivacaine 0.25% Pres-Free 30 ML VIAL (14:15)
--- NOTE | 2023-05-03 15:28 | W.ANESPOSTOP ---
Postoperative Evaluation Date, Time and Location Date Performed: 05/03/23 Time Performed: 15:29 Patient Location: PACU Vital Signs Most Recent Imported Vital Signs: Most Recent Vital Signs Temp Pulse Resp BP Pulse Ox 36.6 C 64 10 L 126/64 100 05/03/23 15:14 05/03/23 15:14 05/03/23 15:14 05/03/23 15:14 05/03/23 15:14 Pain Score Most Recent Pain Score: Most Recent Pain Score Pain Level 5 05/03/23 12:40 Assessment Mental Status: Awake (Alert & Oriented to Patient Baseline) Airway and Respiratory Function: Patent airway with normal (patient baseline) respiratory exam Cardiovascular Function: Hemodynamically Stable Hydration Status: Adequately Hydrated Nausea & Vomiting: No Nausea or Vomiting Pain: Pain is tolerable per patient Peripheral Nerve Block: Patient did not receive a nerve block
== END 2023-05-03 16:25 | disposition home or self-care (01) ==
PROVIDERS: Visit Provider Student in an Organized Health Care Education/Training Program
PROC: (CPT 26605; 2023-05-03 14:45)
DX: S62.336A Displaced fracture of neck of fifth metacarpal bone, right hand, initial encounter for closed fracture (principal); X58.XXXA Exposure to other specified factors, initial encounter; F17.210 Nicotine dependence, cigarettes, uncomplicated; F41.9 Anxiety disorder, unspecified; F32.A Depression, unspecified
CPT/HCPCS: 26605; 73120; J1100; J1885; J2250; J2405

== ENCOUNTER 2023-05-16 11:07 | Outpatient (CLI) | payer SELFPAY ==
--- NOTE | 2023-05-16 10:30 | DI.RAD_ITS ---
Exam(s) XR HAND RT COMPLETE EXAM: XR HAND RT COMPLETE CLINICAL HISTORY: F/U FRACTURE. TECHNIQUE: 2D digital imaging was performed of the right hand. Three images were obtained. AP, late ral and oblique views were obtained. COMPARISON: CR XR HAND RT COMPLETE from 05/01/2023 XA XR HAND RT LIMITED from 05/03/2023 FINDINGS: BONES: There is again seen an acute fracture at the distal aspect of the right 5th metacarpal bone. There is almost 4 mm lateral displacement of the distal fracture. There is increased displacement of the fracture compared to the prior examination. No bony destructive lesion is seen. JOINTS: No dislocation present. SOFT TISSUE: Normal. IMPRESSION: Increased displacement of the fracture involving the distal aspect of the right 5th metacarpal since the prior examination. DATA REPOSITORY: RADIATION DOSE DELIVERED:
== END 2023-05-16 11:08 | disposition home or self-care (01) ==
LOC: DIORS 11:07
PROVIDERS: Visit Provider Student in an Organized Health Care Education/Training Program
DX: S62.326D Displaced fracture of shaft of fifth metacarpal bone, right hand, subsequent encounter for fracture with routine healing (principal); X58.XXXD Exposure to other specified factors, subsequent encounter
CPT/HCPCS: 73130

== ENCOUNTER 2023-05-30 08:23 | Outpatient (CLI) | payer SELFPAY ==
--- NOTE | 2023-05-30 08:15 | DI.RAD_ITS ---
Exam(s) XR HAND RT LIMITED EXAM: XR HAND RT LIMITED INDICATION: metacarpal f/u. COMPARISON: CR XR HAND RT COMPLETE from 05/16/2023 TECHNIQUE: 2D digital imaging was performed. Two views. FINDINGS: There has been no change in the alignment of the 5th metacarpal fracture. There is increased callus formation around the fracture site. No new abnormalities are seen. DATA REPOSITORY: RADIATION DOSE DELIVERED:
== END 2023-05-30 08:24 | disposition home or self-care (01) ==
LOC: DIORS 08:23
PROVIDERS: Visit Provider Student in an Organized Health Care Education/Training Program
DX: S62.326D Displaced fracture of shaft of fifth metacarpal bone, right hand, subsequent encounter for fracture with routine healing (principal); X58.XXXD Exposure to other specified factors, subsequent encounter
CPT/HCPCS: 73120

== ENCOUNTER 2023-06-27 09:32 | Outpatient (CLI) | payer SELFPAY ==
--- NOTE | 2023-06-27 08:30 | DI.RAD_ITS ---
Exam(s) XR HAND RT LIMITED EXAM: XR HAND RT LIMITED CLINICAL HISTORY: right metacarpal f/u. TECHNIQUE: 2D digital imaging was performed of the right hand. Two images were obtained. PA and lat eral views were obtained. COMPARISON: CR XR HAND RT LIMITED from 05/30/2023 FINDINGS: BONES: There is a stable fracture of the right 5th metacarpal bone. No change in alignment. There i s increased healing since the prior examination. No new fractures present. No bony destructive lesi on is seen. JOINTS: No dislocation present. SOFT TISSUE: Normal. IMPRESSION: There has been a continued healing of the right 5th metacarpal fracture. DATA REPOSITORY: RADIATION DOSE DELIVERED:
== END 2023-06-27 09:33 | disposition home or self-care (01) ==
LOC: DIORS 09:32
PROVIDERS: Visit Provider Student in an Organized Health Care Education/Training Program
DX: S62.306D Unspecified fracture of fifth metacarpal bone, right hand, subsequent encounter for fracture with routine healing (principal); X58.XXXD Exposure to other specified factors, subsequent encounter
CPT/HCPCS: 73120